=== PATIENT | female | born 1980 | race Caucasian/White ===

== ENCOUNTER → 2017-04-25 | Outpatient (CLI) | payer OTHER | LOC: RAD 16:55 | DX: R05 Cough (principal) | CPT/HCPCS: 71020 ==

== ENCOUNTER 2021-03-09 19:47 | Emergency (ER) | payer BC, OTHER ==
[~2021-03-09 19:47] MED LIST: AZITHROMYCIN250 MG PO; ELAVIL 25 MG TA25 MG PO; IMITREX50 MG PO; MOBIC15 MG PO; PERCOCET 5/325 T1 EA PO; PREDNISONE20 MG PO; TOPAMAX200 MG PO; TRAZODONE HCL100 MG PO; VENTOLIN HFA 66.7 GM INH; ZOLOFT50 MG PO
[2021-03-10] MEDS ORDERED: CYCLOBENZAPRINE10 MG PO (02:56)
== END 2021-03-10 03:16 | disposition home or self-care (01) ==
LOC: ER1 19:47
DX: M54.5 Low back pain (principal); G89.29 Other chronic pain; Z79.899 Other long term (current) drug therapy; F17.200 Nicotine dependence, unspecified, uncomplicated
CPT/HCPCS: 72128; 72131; 96374; 99283; J1885

== ENCOUNTER 2022-01-12 20:24 | Inpatient (IN) | payer OTHER ==
[~2022-01-12] VITALS: Ht 157.5 cm; Wt 73.3 kg
[~2022-01-12 20:24] MED LIST changes: +CYCLOBENZAPRINE10 MG PO
[2022-01-12 23:25] LABS: RED BLOOD COUNT 4.3 M/UL (4.00-5.10)
[2022-01-12 23:57] LABS: BUN/CREATININE RATIO 8 (0-10)
[2022-01-13 08:30] LABS: HEMOGLOBIN 14.3 gm/dl (12.3-15.3); RED BLOOD COUNT 4.59 M/UL (4.00-5.10)
[2022-01-13 08:49] LABS: BUN/CREATININE RATIO 10 (0-10)
--- NOTE | 2022-01-13 11:53 | NUR ---
01/13/22 1140 REPORT CALLED TO IVETTE IN ICU TO BE TRANSFERRED WHEN BE READY
[2022-01-14 04:34] LABS: HEMOGLOBIN 13.1 gm/dl (12.3-15.3); RED BLOOD COUNT 4.33 M/UL (4.00-5.10)
[2022-01-14 04:37] LABS: WHITE BLOOD COUNT 32.4 K/UL (4.5-11.0)
[2022-01-14 05:00] LABS: BUN/CREATININE RATIO 13 (0-10)
[2022-01-15 04:56] LABS: BUN/CREATININE RATIO 21 (0-10)
[2022-01-15 13:46] LABS: HEMOGLOBIN 12.1 gm/dl (12.3-15.3); RED BLOOD COUNT 3.98 M/UL (4.00-5.10); WHITE BLOOD COUNT 29.2 K/UL (4.5-11.0)
[2022-01-16 04:29] LABS: HEMOGLOBIN 11.5 gm/dl (12.3-15.3); RED BLOOD COUNT 3.78 M/UL (4.00-5.10)
[2022-01-16 04:34] LABS: WHITE BLOOD COUNT 12.6 K/UL (4.5-11.0)
[2022-01-16 04:50] LABS: BUN/CREATININE RATIO 25 (0-10)
--- NOTE | 2022-01-16 13:17 | NUR ---
PT ROOM AIR SAT 87%. PT WILL NEED OXYGEN SENT HOME WITH HER. SHE IS CURRENTLY ON 2L NASAL CANNULA.
[2022-01-16] MEDS ORDERED: BACTRIM DS TAB1 EACH PO (13:30)
[2022-01-16] MEDS ORDERED: PEPCID40 MG PO (13:30)
[2022-01-16] MEDS ORDERED: NICOTINE PATCH1 EAC1 TD (13:30)
[2022-01-16] MEDS ORDERED: MEDROL DOSEPAK 24 MG PO (13:30)
[2022-01-16] MEDS ORDERED: PROVENTIL HFA6.7 GM INH (13:30)
--- NOTE | 2022-01-16 15:06 | NUR ---
PT DISCHARGED HOME ON 2L NASAL CANNULA.
== END 2022-01-16 15:43 | disposition home or self-care (01) | DRG 915 ==
LOC: ER1 20:24 → CDU 01-13 05:01 → PROG CARE 01-13 10:32 → 3 EAST 01-13 10:41 → PROG CARE 01-13 11:04 → CCU 01-13 13:40
PROVIDERS: Internal Medicine; Internal Medicine Infectious Disease; Physician Assistant; ADMIT Internal Medicine
PROC: B24BZZZ Ultrasonography of Heart with Aorta (ICD-10-PCS; principal; 2022-01-13)
PROC: 5A09357 Assistance with Respiratory Ventilation, Less than 24 Consecutive Hours, Continuous Positive Airway Pressure (ICD-10-PCS; 2022-01-13)
PROC: 5A0935A Assistance with Respiratory Ventilation, Less than 24 Consecutive Hours, High Flow/Velocity Cannula (ICD-10-PCS; 2022-01-13)
PROC: 3E03329 Introduction of Other Anti-infective into Peripheral Vein, Percutaneous Approach (ICD-10-PCS; 2022-01-13)
PROC: 3E043XZ Introduction of Vasopressor into Central Vein, Percutaneous Approach (ICD-10-PCS; 2022-01-13)
PROC: 5A09457 Assistance with Respiratory Ventilation, 24-96 Consecutive Hours, Continuous Positive Airway Pressure (ICD-10-PCS; 2022-01-14)
PROC: 5A0935A Assistance with Respiratory Ventilation, Less than 24 Consecutive Hours, High Flow/Velocity Cannula (ICD-10-PCS; 2022-01-15)
DX: T88.6XXA Anaphylactic reaction due to adverse effect of correct drug or medicament properly administered, initial encounter (principal); A41.9 Sepsis, unspecified organism; J80 Acute respiratory distress syndrome; R65.21 Severe sepsis with septic shock; N76.4 Abscess of vulva; E87.1 Hypo-osmolality and hyponatremia; D72.829 Elevated white blood cell count, unspecified; F17.200 Nicotine dependence, unspecified, uncomplicated; N83.202 Unspecified ovarian cyst, left side; R59.1 Generalized enlarged lymph nodes; Z20.822 Contact with and (suspected) exposure to COVID-19; F41.9 Anxiety disorder, unspecified; T50.8X5A Adverse effect of diagnostic agents, initial encounter; Y84.8 Other medical procedures as the cause of abnormal reaction of the patient, or of later complication, without mention of misadventure at the time of the procedure; I05.0 Rheumatic mitral stenosis; E87.6 Hypokalemia; R73.9 Hyperglycemia, unspecified; T38.0X5A Adverse effect of glucocorticoids and synthetic analogues, initial encounter; Z98.890 Other specified postprocedural states
CPT/HCPCS: ECHO; 36415; 36600; 71045; 71250; 72193; 78580; 80048; 80053; 80202; 81001; 82550; 82553; 82800; 82803; 82962; 83605; 83735; 83880; 84132; 84484; 84703; 85025; 86140; 87040; 93005; 93306; 93970; 94660; 94760; 96365; 96366; 96368; 96372; 96375; 96376; 99285; A9540; J0171; J1200; J1650; J1940; J2270; J2405; J2543; J2920; J2930; J3370; J7030; J7070; Q9967; U0002

== ENCOUNTER 2022-03-16 22:33 | Inpatient (IN) | payer OTHER ==
[~2022-03-16] VITALS: Ht 157.5 cm; Wt 70.3 kg
[~2022-03-16 22:33] MED LIST changes: +BACTRIM DS TAB1 EACH PO; +MEDROL DOSEPAK 24 MG PO; +NICOTINE PATCH1 EAC1 TD; +PEPCID40 MG PO; +PROVENTIL HFA6.7 GM INH
[2022-03-16 23:28] LABS: HEMOGLOBIN 12.9 gm/dl (12.3-15.3); RED BLOOD COUNT 4.23 M/UL (4.00-5.10); WHITE BLOOD COUNT 25.4 K/UL (4.5-11.0)
[2022-03-16 23:32] LABS: BUN/CREATININE RATIO 14 (0-10)
[2022-03-17 03:36] LABS: HEMOGLOBIN 12.7 gm/dl (12.3-15.3); RED BLOOD COUNT 4.18 M/UL (4.00-5.10); WHITE BLOOD COUNT 22.6 K/UL (4.5-11.0)
[2022-03-17 03:54] LABS: BUN/CREATININE RATIO 17 (0-10)
[2022-03-17] MEDS ORDERED: PAIN RELIEF EX500 MG PO (14:14)
[2022-03-18 05:22] LABS: HEMOGLOBIN 11.7 gm/dl (12.3-15.3); RED BLOOD COUNT 3.87 M/UL (4.00-5.10); WHITE BLOOD COUNT 25.8 K/UL (4.5-11.0)
[2022-03-18 05:49] LABS: BUN/CREATININE RATIO 25 (0-10)
[2022-03-18 08:16] LABS: HBSAG SCREEN Negative (Negative); HCV AB <0.1 (0.0-0.9); HEP A AB, IGM Negative (Negative); HEP B CORE AB, IGM Negative (Negative); HIV AB/P24 AG SCREEN Non Reactive (Non Reactive)
[2022-03-18 08:21] LABS: BORDETELLA PARAPERTUSSIS Not Detected (Not Detectd); BORDETELLA PERTUSSIS Not Detected (Not Detectd); CHLAMYDIA PNEUMONIAE Not Detected (Not Detectd); CORONAVIRUS HKU1 Not Detected (Not Detectd); CORONAVIRUS NL63 Not Detected (Not Detectd); CORONAVIRUS OC43 Not Detected (Not Detectd); CORONOAVIRUS 229E Not Detected (Not Detectd); HUMAN METAPNEUMOVIRUS Not Detected (Not Detectd); HUMAN RHINOVIRUS/ENTEROVIRUS Not Detected (Not Detectd); INFLUENZA A Not Detected (Not Detectd); INFLUENZA B Not Detected (Not Detectd); MYCOPLASMA PNEUMONIAE Not Detected (Not Detectd); PARAINFLUENZA VIRUS 1 Not Detected (Not Detectd); PARAINFLUENZA VIRUS 2 Not Detected (Not Detectd); PARAINFLUENZA VIRUS 3 Not Detected (Not Detectd); PARAINFLUENZA VIRUS 4 Not Detected (Not Detectd); RESPIRATORY SYNCYTIAL VIRUS Not Detected (Not Detectd)
[2022-03-18 09:48] LABS: SARS-CoV-2 NOT DETECTED (Not Detectd)
[2022-03-19 05:10] LABS: HEMOGLOBIN 10.6 gm/dl (12.3-15.3); RED BLOOD COUNT 3.54 M/UL (4.00-5.10); WHITE BLOOD COUNT 19.7 K/UL (4.5-11.0)
[2022-03-19 05:28] LABS: BUN/CREATININE RATIO 34 (0-10)
[2022-03-20 04:58] LABS: HEMOGLOBIN 10.8 gm/dl (12.3-15.3); RED BLOOD COUNT 3.58 M/UL (4.00-5.10); WHITE BLOOD COUNT 15.1 K/UL (4.5-11.0)
[2022-03-20 05:17] LABS: BUN/CREATININE RATIO 30 (0-10)
[2022-03-20 14:11] LABS: ANTI-CENTROMERE B ANTIBODIES <0.2 AI (0.0-0.9); ANTI-DNA (DS) AB QN 2 IU/mL (0-9); ANTI-JO-1 <0.2 AI (0.0-0.9); ANTICHROMATIN ANTIBODIES <0.2 AI (0.0-0.9); ANTIRIBOSOMAL P ANTIBODIES <0.2 AI (0.0-0.9); ANTISCLERODERMA-70 ANTIBODIES <0.2 AI (0.0-0.9); RNP ANTIBODIES <0.2 AI (0.0-0.9); SJOGREN'S ANTI-SS-A 0.2 AI (0.0-0.9); SJOGREN'S ANTI-SS-B <0.2 AI (0.0-0.9); SMITH ANTIBODIES <0.2 AI (0.0-0.9); SMITH/RNP ANTIBODIES <0.2 AI (0.0-0.9)
[2022-03-20 14:11] LABS: ANTISCLERODERMA-70 ANTIBODIES <0.2 AI (0.0-0.9); RNP ANTIBODIES <0.2 AI (0.0-0.9); SJOGREN'S ANTI-SS-A <0.2 AI (0.0-0.9); SJOGREN'S ANTI-SS-B <0.2 AI (0.0-0.9)
[2022-03-20 16:11] LABS: ORGANISM ID Not indicated. (.); SPECIMEN SOURCE Urine (.); STREPTOCOCCUS PNEUMONIAE AG Negative (Negative)
[2022-03-21 04:43] LABS: RED BLOOD COUNT 3.72 M/UL (4.00-5.10); WHITE BLOOD COUNT 15.7 K/UL (4.5-11.0)
[2022-03-21 05:09] LABS: BUN/CREATININE RATIO 30 (0-10)
[2022-03-21 15:14] LABS: MYCOPLASMA PNEUMONIAE, IGM AB <770 U/mL (0-769)
[2022-03-21 16:14] LABS: ANTIMYELOPEROXIDASE (MPO) ABS <9.0 U/mL (0.0-9.0); ANTIPROTEINASE 3 (PR-3) ABS <3.5 U/mL (0.0-3.5); ATYPICAL PANCA <1:20 titer (Neg:<1:20); CYTOPLASMIC (C-ANCA) <1:20 titer (Neg:<1:20); PERINUCLEAR (P-ANCA) <1:20 titer (Neg:<1:20)
[2022-03-22 04:29] LABS: HEMOGLOBIN 11.1 gm/dl (12.3-15.3); RED BLOOD COUNT 3.76 M/UL (4.00-5.10)
[2022-03-22 04:45] LABS: BUN/CREATININE RATIO 30 (0-10)
[2022-03-22] MEDS ORDERED: COLESTID1 GM PO (15:56)
[2022-03-23 09:16] LABS: FUNGITELL, SERUM 35 pg/mL (<80)
[2022-03-24 10:14] LABS: ASPERGILLUS FUMAGATUS IGG Negative (Negative); AUREOBASIDIUM PULLULANS IGG Negative (Negative); MICROPOLYSPORA FAENI IGG Negative (Negative); PIGEON SERUM IGG Negative (Negative); THERMOACTINOMYCES SACCHARI IGG Negative (Negative); THERMOACTINOMYCES VULGARIS IGG Negative (Negative)
[2022-03-27 08:10] LABS: D001-IGE D PTERONYSSINUS <0.10 kU/L (Class 0); D002-IGE D FARINAE <0.10 kU/L (Class 0); E001-IGE CAT DANDER <0.10 kU/L (Class 0); E005-IGE DOG DANDER 0.12 kU/L (Class 0/I); G002-IGE BERMUDA GRASS <0.10 kU/L (Class 0); G006-IGE TIMOTHY GRASS <0.10 kU/L (Class 0); M001-IGE PENICILLIUM CHRYSOGEN <0.10 kU/L (Class 0); M002-IGE CLADOSPORIUM HERBARUM <0.10 kU/L (Class 0); M003-IGE ASPERGILLUS FUMIGATUS <0.10 kU/L (Class 0); M006-IGE ALTERNARIA ALTERNATA <0.10 kU/L (Class 0); T001-IGE MAPLE/BOX ELDER <0.10 kU/L (Class 0); T003-IGE COMMON SILVER BIRCH <0.10 kU/L (Class 0); T006-IGE CEDAR, MOUNTAIN <0.10 kU/L (Class 0); T007-IGE OAK, WHITE <0.10 kU/L (Class 0); T010-IGE WALNUT <0.10 kU/L (Class 0); T011-IGE MAPLE LEAF SYCAMORE <0.10 kU/L (Class 0); T014-IGE COTTONWOOD <0.10 kU/L (Class 0); T015-IGE ASH, WHITE <0.10 kU/L (Class 0); T070-IGE WHITE MULBERRY <0.10 kU/L (Class 0); W001-IGE RAGWEED, SHORT <0.10 kU/L (Class 0); W018-IGE SHEEP SORREL <0.10 kU/L (Class 0)
== END 2022-03-22 17:20 | disposition home or self-care (01) | DRG 853 ==
LOC: ER1 22:33 → CCU 23:22 → CDU 23:22 → PROG CARE 03-17 08:38 → CCU 03-18 10:58
PROVIDERS: Internal Medicine; Internal Medicine Critical Care Medicine; Internal Medicine Pulmonary Disease; ADMIT Internal Medicine
PROC: 3E03329 Introduction of Other Anti-infective into Peripheral Vein, Percutaneous Approach (ICD-10-PCS; 2022-03-16)
PROC: 5A09357 Assistance with Respiratory Ventilation, Less than 24 Consecutive Hours, Continuous Positive Airway Pressure (ICD-10-PCS; 2022-03-17)
PROC: 5A0935A Assistance with Respiratory Ventilation, Less than 24 Consecutive Hours, High Flow/Velocity Cannula (ICD-10-PCS; 2022-03-17)
PROC: 5A09357 Assistance with Respiratory Ventilation, Less than 24 Consecutive Hours, Continuous Positive Airway Pressure (ICD-10-PCS; 2022-03-18)
PROC: 5A0945A Assistance with Respiratory Ventilation, 24-96 Consecutive Hours, High Flow/Velocity Cannula (ICD-10-PCS; 2022-03-18)
PROC: 0B9H8ZX Drainage of Lung Lingula, Via Natural or Artificial Opening Endoscopic, Diagnostic (ICD-10-PCS; 2022-03-22)
PROC: 5A0935A Assistance with Respiratory Ventilation, Less than 24 Consecutive Hours, High Flow/Velocity Cannula (ICD-10-PCS; 2022-03-22)
PROC: 0BD98ZX Extraction of Lingula Bronchus, Via Natural or Artificial Opening Endoscopic, Diagnostic (ICD-10-PCS; 2022-03-22)
PROC: 0BD88ZX Extraction of Left Upper Lobe Bronchus, Via Natural or Artificial Opening Endoscopic, Diagnostic (ICD-10-PCS; 2022-03-22)
PROC: 0W3Q8ZZ Control Bleeding in Respiratory Tract, Via Natural or Artificial Opening Endoscopic (ICD-10-PCS; principal; 2022-03-22 09:45)
DX: A41.9 Sepsis, unspecified organism (principal); J18.9 Pneumonia, unspecified organism; J80 Acute respiratory distress syndrome; J44.0 Chronic obstructive pulmonary disease with (acute) lower respiratory infection; J95.61 Intraoperative hemorrhage and hematoma of a respiratory system organ or structure complicating a respiratory system procedure; Z20.822 Contact with and (suspected) exposure to COVID-19; E11.65 Type 2 diabetes mellitus with hyperglycemia; Y83.8 Other surgical procedures as the cause of abnormal reaction of the patient, or of later complication, without mention of misadventure at the time of the procedure; R65.20 Severe sepsis without septic shock; F17.210 Nicotine dependence, cigarettes, uncomplicated; T38.0X5A Adverse effect of glucocorticoids and synthetic analogues, initial encounter; Z99.81 Dependence on supplemental oxygen; Z98.891 History of uterine scar from previous surgery; Z88.8 Allergy status to other drugs, medicaments and biological substances; Z91.041 Radiographic dye allergy status; Z85.9 Personal history of malignant neoplasm, unspecified; Z91.018 Allergy to other foods; Z71.6 Tobacco abuse counseling
CPT/HCPCS: 0240U; 36415; 36600; 71045; 71250; 76000; 80048; 80053; 80074; 80202; 80307; 81001; 82550; 82553; 82785; 82803; 82962; 83036; 83516; 83520; 83605; 83615; 83690; 83880; 84484; 84703; 85025; 85027; 86140; 86225; 86235; 86256; 86331; 86602; 86609; 86671; 86738; 87040; 87070; 87081; 87205; 87206; 87252; 87278; 87389; 87633; 87899; 93005; 94640; 94660; 94664; 94760; 96374; 96375; 96376; 99285; J0456; J1170; J1650; J1940; J2250; J2543; J2704; J2920; J2930; J3370; J7030; J7040; J7070; U0002

== ENCOUNTER → 2022-03-29 | Outpatient (CLI) | payer OTHER ==
[~2022-03-29] MED LIST changes: +COLESTID1 GM PO; +PAIN RELIEF EX500 MG PO
== END ==
LOC: EXRD 09:31
DX: J18.9 Pneumonia, unspecified organism (principal); R91.8 Other nonspecific abnormal finding of lung field
CPT/HCPCS: 71046; J7040

== ENCOUNTER → 2022-04-03 | Outpatient (CLI) | payer OTHER | LOC: CATH 07:10 → EDSTATUS 08:00 → CATH 08:00 | DX: I08.1 Rheumatic disorders of both mitral and tricuspid valves (principal); F41.9 Anxiety disorder, unspecified; G43.709 Chronic migraine without aura, not intractable, without status migrainosus; J84.9 Interstitial pulmonary disease, unspecified; F17.210 Nicotine dependence, cigarettes, uncomplicated; R94.31 Abnormal electrocardiogram [ECG] [EKG]; Z87.892 Personal history of anaphylaxis; Z88.5 Allergy status to narcotic agent; Z91.041 Radiographic dye allergy status; Z79.52 Long term (current) use of systemic steroids | CPT/HCPCS: 84703; 93005; 93312; 93320; J2250; J2310; J2704; J3010; J7040 ==